=== PATIENT | male | born 1980 | race Caucasian/White ===

== ENCOUNTER 2023-10-28 10:46 | Emergency (ER) | payer BC ==
[2023-10-28] MEDS: Bacitracin Oint 1 GM U/D Packet TOP ONE (11:16)
[2023-10-28] MEDS: Diphtheria,Pertussis(Acell),Tetanus Vaccine 0.5 ML Syringe IM ONE (11:25)
== END 2023-10-28 11:33 | disposition home or self-care (01) ==
LOC: LB.ED 10:46 → MERGE 10:46 → LB.ED 11:33
DX: S61.230A Puncture wound without foreign body of right index finger without damage to nail, initial encounter (principal); S61.342A Puncture wound with foreign body of right middle finger with damage to nail, initial encounter; Z23 Encounter for immunization; W26.8XXA Contact with other sharp object(s), not elsewhere classified, initial encounter
CPT/HCPCS: 90471; 90715; 99283; 99283-25